=== PATIENT | male | born 1965 | race Caucasian/White ===

== ENCOUNTER 2016-10-01 20:44 | Inpatient (IN) | payer MEDICARE ==
[2016-10-01] VITALS (8 sets, daily range): BP systolic 112–155; BP diastolic 75–97; PULSE 67–83; RESP 18–20; TEMP 97.5–98; O2SAT 94–98
[~2016-10-01 20:44] MED LIST: ATAZ100 PO; FIORTAB4 PO; LISI-360 PO; RITO100 PO; TENO300 PO
[2016-10-01] MEDS ORDERED: SODIUM CHLOR 0.9% 1000 ML INJ 1,000 ML IV ONE (20:50)
[2016-10-01] MEDS ORDERED: NITROGLYCERIN 0.4 MG SL 25 TABS/BTL SL STA (20:50)
[2016-10-01] MEDS ORDERED: ASPIRIN 81 MG CHEW TAB PO STA (20:50)
[2016-10-01] MEDS ORDERED: HEPARIN SODIUM - IV 10,000 UNITS/10 ML VIAL IV STA (20:54)
[2016-10-01] MEDS ORDERED: ATAZ150 PO (20:57)
[2016-10-01] MEDS ORDERED: ATEN25TA PO (20:57)
[2016-10-01] MEDS ORDERED: SODIUM CHLORIDE 0.9% FLUSH 5 ML FLUSH IVF SCH (21:00)
[2016-10-01] MEDS ORDERED: SODIUM CHLORIDE 0.9% FLUSH 5 ML FLUSH IVF PRN ×3 (21:00→22:45)
[2016-10-01] MEDS ORDERED: NITROGLYCERIN-DEXTROSE INJ 250 ML IV SCH ×2 (21:00→22:45)
--- NOTE | 2016-10-01 21:00 | PD ---
HPI Chief Complaint: Chest Pain Time Seen by Provider: 20:50 Travel History International Travel<30 days: No Contact w/Intl Traveler<30days: No Traveled to known affect area: No History of Present Illness HPI 51-year-old male presents to the emergency department by private transportation for complaint of retrosternal chest pain radiating into both upper extremity that developed just prior to arrival to the emergency department. Patient states she has felt well all day was getting out of the shower and started noticing severe pain in his chest with radiation. No nausea or vomiting since breath. Did note diaphoresis. No prior history of CAD. Patient does have history of hypertension but denies dyslipidemia diabetes tobacco use or premature onset history of CAD in his family. Patient rates pain 10 over 10 in intensity. Patient denies other concerns or complaints. Patient does report that he is HIV positive. Patient's primary care physician is Dr. Desai. Patient has not seen a blister pack operator. PFSH Past Medical History Narrative Medical HTN, HIV, hepatitis C, headaches; eye surgery; No Tobacco use; nursing notes reviewed Autoimmune Disease: Yes (HIV +) Blood Disorders: No Cancer: No Cardiovascular Problems: No Chest Pain: No Congestive Heart Failure: No Cerebrovascular Accident: No Endocrine: No Glaucoma: No Genitourinary: No Headaches: Yes Hepatitis: Yes Hypertension: Yes Immune Disorder: Yes (HIV POSITIVE) Implanted Vascular Access Dvce: No Medical other: Yes (HIV) Neurologic: Yes (SPINAL TAP R/O MENINGITIS) Psychiatric: No Respiratory: No Migraines: No Seizures: No PNEUMOCCOCAL Vaccine (Year): 1 Past Surgical History Eye Surgery: Yes (LASER EYE SURGERY) Neurologic Surgery: No Other Surgery: No Social History Alcohol Use: Yes (OCCASIONAL) Tobacco Use: No Substance Use: No Allergies-Medications (Allergen,Severity, Reaction): Coded Allergies: No Known Allergies (Verified , 10/01/16) Reported Meds & Prescriptions Reported Meds & Active Scripts Active Reported Reyataz (Atazanavir) 150 Mg Cap 100 Mg PO DAILY Atenolol 25 Mg Tab 25 Mg PO DAILY Review of Systems Except as stated in HPI: all other systems reviewed are Neg General / Constitutional: No: Fever Eyes: No: Visual changes HENT: No: Congestion Cardiovascular: Positive: Chest Pain or Discomfort, Diaphoresis Respiratory: No: Shortness of Breath Gastrointestinal: No: Nausea, Vomiting, Abdominal Pain Genitourinary: No: Flank Pain Musculoskeletal: No: Myalgias, Arthralgias Skin: No Rash Neurologic: No: Weakness Psychiatric: Positive: Anxiety Hematologic/Lymphatic: No: Easy Bruising Physical Exam Narrative GENERAL: Well-developed well-nourished male in obvious distress with mild diaphoresis no respiratory distress appears to be in discomfort. SKIN: Warm and mild diaphoresis. HEAD: Normocephalic. EYES: No scleral icterus. No injection or drainage. NECK: Supple, trachea midline. No JVD or lymphadenopathy. CARDIOVASCULAR: Regular rate and rhythm without murmurs, gallops, or rubs. RESPIRATORY: Breath sounds equal bilaterally. No accessory muscle use. GASTROINTESTINAL: Abdomen soft, non-tender, nondistended. MUSCULOSKELETAL: No cyanosis, or edema. Bilateral radial and dorsalis pedis pulses 2+ to palpation and equal. BACK: Nontender without obvious deformity. No CVA tenderness. Data Data Last Documented VS Vital Signs Date Time Temp Pulse Resp B/P Pulse Ox O2 Delivery O2 Flow Rate FiO2 10/01/16 21:01 67 20 142/86 98 10/01/16 21:00 Nasal Cannula 2.00 10/01/16 20:52 97.5 Orders Troponin I (10/01/16 20:50) Ckmb (Isoenzyme) Profile (10/01/16 20:50) Complete Blood Count With Diff (10/01/16 20:50) Basic Metabolic Panel (Bmp) (10/01/16 20:50) Magnesium (Mg) (10/01/16 20:50) Calcium (10/01/16 20:50) Prothrombin Time / Inr (Pt) (10/01/16 20:50) Act Partial Throm Time (Ptt) (10/01/16 20:50) B-Type Natriuretic Peptide (10/01/16 20:50) Chest, Single Ap (10/01/16 20:50) Electrocardiogram (10/01/16 20:50) Oxygen Administration (10/01/16 20:50) Iv Access Insert/Monitor (10/01/16 20:50) Oximetry (10/01/16 20:50) Sodium Chlor 0.9% 1000 Ml Inj (Ns 1000 M (10/01/16 20:50) Sodium Chloride 0.9% Flush (Ns Flush) (10/01/16 21:00) Aspirin Chew (Aspirin Chew) (10/01/16 20:50) Nitroglycerin Sl (Nitrostat Sl) (10/01/16 20:50) Nitroglycerin-Dextrose Inj (Nitroglyceri (10/01/16 21:00) Heparin Inj (Heparin Inj) (10/01/16 20:54) Admit Order (Ed Use Only) (10/01/16 ) ^ Saline Lock (10/01/16 21:00) Resp Oxygen Shai C Titrat 1-4 L (10/01/16 ) ^ Notify Dr: Other (10/01/16 21:00) Sodium Chloride 0.9% Flush (Ns Flush) (10/01/16 21:00) CKMB (10/01/16 20:20) CKMB% (10/01/16 20:20) Labs Laboratory Tests Test 10/01/16 20:20 White Blood Count 9.2 TH/MM3 Red Blood Count 5.09 MIL/MM3 Hemoglobin 15.3 GM/DL Hematocrit 45.8 % Mean Corpuscular Volume 89.9 FL Mean Corpuscular Hemoglobin 30.1 PG Mean Corpuscular Hemoglobin 33.5 % Concent Red Cell Distribution Width 13.0 % Platelet Count 230 TH/MM3 Mean Platelet Volume 8.2 FL Neutrophils (%) (Auto) 48.2 % Lymphocytes (%) (Auto) 42.6 % Monocytes (%) (Auto) 7.3 % Eosinophils (%) (Auto) 1.4 % Basophils (%) (Auto) 0.5 % Neutrophils # (Auto) 4.5 TH/MM3 Lymphocytes # (Auto) 3.9 TH/MM3 Monocytes # (Auto) 0.7 TH/MM3 Eosinophils # (Auto) 0.1 TH/MM3 Basophils # (Auto) 0.0 TH/MM3 CBC Comment DIFF FINAL Differential Comment Prothrombin Time 11.2 SEC Prothromb Time International 1.0 RATIO Ratio Activated Partial 25.9 SEC Thromboplast Time Sodium Level 141 MEQ/L Potassium Level 3.5 MEQ/L Chloride Level 107 MEQ/L Carbon Dioxide Level 22.9 MEQ/L Anion Gap 11 MEQ/L Blood Urea Nitrogen 22 MG/DL Creatinine 1.30 MG/DL Estimat Glomerular Filtration 59 ML/MIN Rate Random Glucose 113 MG/DL Calcium Level 8.8 MG/DL Magnesium Level 2.2 MG/DL Total Creatine Kinase 124 U/L Creatine Kinase MB 1.4 NG/ML Troponin I LESS THAN 0.02 NG/ML B-Type Natriuretic Peptide 20 PG/ML MDM Medical Decision Making Medical Screen Exam Complete: Yes Emergency Medical Condition: Yes Medical Record Reviewed: Yes (medical record reviewed) Interpretation(s) EKG normal sinus rhythm with marked ST elevation anterolaterally with reciprocal changes inferiorly CBC & BMP Diagram 10/01/16 20:20 troponin I: less than 0.02, not elevated coags: wnl cxr nad, tortuous aorta per reading radiologist Dr Gomez; reviewed by me Differential Diagnosis STEMI, dissection, aneurysm Narrative Course Patient straight back to ED stretcher placed on quality assurance monitor final IV access obtained specimens collected supplemental oxygen administered EKG performed consistent with acute ST elevation AMI; patient administered aspirin therapy 4 mg by mouth chewed, sublingual nitroglycerin 0.4 mg 2 administered patient received heparin bolus times one without associated infusion patient administered infusion administered nitroglycerin patient heart rate staying in the 60s therefore metoprolol deferred at this time; patient with ongoing pain administered for Zofran for mild nausea and total of morphine sulfate 4 mg IV at 2 mg increments each; blood pressure 116 systolic therefore administered normal saline bolus. 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 Time to perform other separately billable procedures was not included in the critical care time. My time did not include minutes spent treating any other patients simultaneously or on activities that did not directly contribute to the patient's treatment. The services I provided to this patient were to treat and/or prevent clinically significant deterioration that could result in: Arrhythmia cardiogenic shock I provided critical care services requiring my management, as noted below: Chart data review, documentation time, medication orders and management, vital sign assessments/reviewing monitor data, ordering and reviewing lab tests, ordering and interpreting/reviewing x-rays and diagnostic studies, care of the patient and discussion of the patient with the admitting physicians. Procedures EKG Prior to Arrival: No Physician Communication Physician Communication @ 20:[address] Woo on his way in to [facility] ballistics laboratory gunsmith Diagnosis Primary Impression: STEMI (ST elevation myocardial infarction) Qualified Code: I21.02 - ST elevation myocardial infarction involving left anterior descending (LAD) coronary artery Admitting Information Admitting Physician Requests: Admit Sia Thayer MD Oct 01, 2016 21:00
[2016-10-01 21:04] LABS: AUTOMATED NEUTROPHIL # 4.5 TH/MM3 (1.8-7.7); BASOPHIL % 0.5 % (0.0-2.0); EOSINOPHIL # 0.1 TH/MM3 (0-0.4); EOSINOPHIL % 1.4 % (0.0-4.0); HEMATOCRIT 45.8 % (39.0-51.0); HEMO FLAGS DIFF FINAL; LYMPH % 42.6 % (9.0-44.0); LYMPHOCYTE # 3.9 TH/MM3 (1.0-4.8); MEAN CELL VOLUME 89.9 FL (80.0-100.0); MEAN CORPUSCULAR HEMOGLOBIN 30.1 PG (27.0-34.0); MEAN CORPUSCULAR HGB CONC 33.5 % (32.0-36.0); MONO % 7.3 % (0.0-8.0); NEUT % 48.2 % (16.0-70.0); PLATELET COUNT 230 TH/MM3 (150-450); RED BLOOD COUNT 5.09 MIL/MM3 (4.50-5.90); WHITE BLOOD COUNT 9.2 TH/MM3 (4.0-11.0)
[2016-10-01 21:14] LABS: CHLORIDE 107 MEQ/L (98-107); POTASSIUM 3.5 MEQ/L (3.5-5.1); SODIUM (NA) 141 MEQ/L (136-145)
[2016-10-01] MEDS ORDERED: ONDANSETRON HCL 4 MG/2 ML VIAL IV PUSH ONE (21:15)
[2016-10-01] MEDS ORDERED: SODIUM CHLORID 0.9% 500 ML INJ 500 ML IV ONE (21:15)
[2016-10-01] MEDS ORDERED: MORPHINE SULFATE 4 MG/ML INJ IV PUSH ONE (21:15)
[2016-10-01 21:17] LABS: ANION GAP 11 MEQ/L (5-15); BICARBONATE 22.9 MEQ/L (21.0-32.0); BLOOD UREA NITROGEN 22 MG/DL (7-18); MAGNESIUM 2.2 MG/DL (1.5-2.5)
[2016-10-01 21:19] LABS: APTT (PATIENT) 25.9 SEC (24.3-30.1); PROTHROMBIN TIME - PATIENT 11.2 SEC (9.8-11.6)
[2016-10-01 21:20] LABS: GLOMERULAR FILTRATION RATE 59 ML/MIN (>89)
[2016-10-01 21:23] LABS: CREATINE KINASE 124 U/L (39-308)
--- NOTE | 2016-10-01 21:25 | RADHPO ---
EXAM DATE/TIME: 10/01/2016 20:57 [facility] COMPARISON: No previous studies available for comparison. INDICATIONS : Chest pain, Stemi alert MEDICAL HISTORY : None. SURGICAL HISTORY : None. ENCOUNTER: Initial ACUITY: 1 day PAIN SCORE: 10/10 LOCATION: Bilateral chest FINDINGS: A single view of the chest demonstrates the lungs to be symmetrically aerated without evidence of mas s, infiltrate or effusion. The cardiomediastinal contours are unremarkable. Osseous structures are intact. CONCLUSION: 1. No acute findings. Tortuous aorta. Roc Gomez MD on October 01, 2016 at 21:23 Board Certified Radiologist. This report was verified electronically.
[2016-10-01] MEDS ORDERED: HEPARIN-NS/PF INJ 500 ML ONE (21:32)
[2016-10-01] MEDS ORDERED: MIDAZOLAM HCL 2 MG/2 ML VIAL ONE (21:34)
[2016-10-01 21:35] LABS: CKMB 1.4 NG/ML (0.5-3.6)
[2016-10-01] MEDS ORDERED: IOHEXOL 350 MG/ML 100 ML BTL (for Cath Lab) OTHER ONE (21:51)
[2016-10-01] MEDS ORDERED: BIVALIRUDIN 250 MG VIAL ONE (21:57)
[2016-10-01] MEDS ORDERED: TICAGRELOR 90 MG TAB PO ONE (22:13)
[2016-10-01] MEDS ORDERED: BIVALIRUDIN INJ 250 MG in SODIUM CHLORIDE 0.9% INJ 50 ML IV SCH (22:31)
[2016-10-01] MEDS ORDERED: SODIUM CHLOR 0.9% 1000 ML INJ 1,000 ML IV SCH (22:31)
[2016-10-01] MEDS ORDERED: ATROPINE SULFATE 1 MG/ML VIAL IV PRN (22:45)
[2016-10-01] MEDS ORDERED: MISC INFORMATION XX ONE (22:45)
[2016-10-01] MEDS ORDERED: ACETAMINOPHEN 325 MG TAB PO PRN (22:45)
[2016-10-01] MEDS ORDERED: ONDANSETRON HCL 4 MG/2 ML VIAL IV PRN (22:45)
[2016-10-01] MEDS ORDERED: BACITRACIN OINT 0.9 GM PKT TOP ONE (22:45)
--- NOTE | 2016-10-01 23:06 | MA ---
cc: ERLIN DAVID M.D., DANIEL A. M.D. DATE 10/01/2016 PROCEDURE PERFORMED 1. Left heart catheterization. 2. Left ventriculography. 3. Coronary angiography 4. Primary stenting of the proximal left anterior descending coronary artery. DESCRIPTION OF PROCEDURE The patient was brought to the cardiac label stamper under emergency with an acute anterior STEMI. The right groin was prepped and draped in sterile fashion. Using 1% lidocaine for local anesthesia, a 6.5-Greenlandic sheath was inserted in the right femoral artery. Next, I used a 6-Greenlandic XB 4.0 LAD guiding catheter which engaged the left main nicely. Angiography was then obtained. I crossed the LAD with a BMW wire, then directly stented utilizing a 3.5 x 18-mm Resolute stent at 12 atmospheres. This restored normal flow in the LAD. Additional angiograms were obtained. I decided not to perform any further intervention on the left coronary system. The catheter was removed. Angiography of the right coronary artery was performed using a 3DRC catheter. An angled pigtail catheter was then used to measure left ventricular pressure, followed by left ventriculography and then a pullback. Angiography was then obtained of the right groin followed by uncomplicated Angio-Seal placement. There were no complications. FINDINGS I. HEMODYNAMICS: Left ventricular pressure was 114/15 with an end-diastolic pressure of 21. Aortic pressure is 122/84 with a mean of 100. II. LEFT VENTRICULOGRAPHY: Left ventriculography shows anterolateral and apical akinesis. Ejection fraction is about 35%. III. CORONARY ANGIOGRAPHY The left main coronary artery appears normal. The left anterior descending artery has a very proximal 99% stenosis with thrombus. It involves the small diagonal branch which has diffuse disease. The remainder of the LAD appears unremarkable and had DHEERAJ-2 flow prior to intervention. The circumflex artery appears normal. The right coronary artery is dominant with irregularities. RESULTS OF STENTING Following stenting of the proximal LAD, a 0% residual stenosis had been achieved. There was some 25% narrowing distal to the stent by the first septal imagery intelligence branch which was left alone. The diagonal branch remained patent. It is diffusely diseased with probably 70% stenosis proximally but is less than a 2-mm sized vessel. NOTE The procedure was performed with Angiomax and the patient was loaded with Brilinta at the end of the case. CONCLUSIONS 1. Acute anterior STEMI with EF of 35%. 2. Subtotally occluded LAD with successful stenting utilizing a drug-eluting stent with complete revascularization achieved. PLAN 1. The patient will continue on aspirin and Brilinta. 2. We will introduce RENA inhibitor, beta nigel and statin therapy. 3. Anticipate a hospital stay of two days. MD ASTON Brumfield/MILAGRO /10:40 PM /10:57 PM
[2016-10-02] VITALS (24 sets, daily range): BP systolic 104–128; BP diastolic 69–85; PULSE 55–90; RESP 14–20; TEMP 97.9–98.7; O2SAT 93–98
--- NOTE | 2016-10-02 08:53 | PD.CARD.PN ---
Subjective Subjective Remarks Chest sore, right groin sore, no SOB or angina Objective Medications Current Medications Medications (Trade) Dose Ordered Sig/Mendoza Route Start Time Stop Time Status Last Admin (NS Flush) 2 ml UNSCH PRN IVF 10/01/16 22:45 (NS Flush) 2 ml BID IVF 10/02/16 09:00 (Tylenol) 325 mg Q4H PRN PO 10/01/16 22:45 (Percocet 5-325 Mg) 1 tab Q4H PRN PO 10/01/16 22:45 (Aspirin Chew) 81 mg DAILY PO 10/02/16 09:00 Ticagrelor 90 mg 90 mg BID PO 10/02/16 09:00 (Nitroglycerin-Dextrose Inj) 250 ml @ 0 mls/hr TITRATE IV 10/01/16 22:45 (Atropine Inj) 0.5 mg UNSCH PRN IV 10/01/16 22:45 (Zofran Inj) 4 mg Q4H PRN IV 10/01/16 22:45 (Coreg) 3.125 mg BID PO 10/02/16 09:00 (Prinivil) 5 mg DAILY PO 10/02/16 09:00 (Lipitor) 10 mg DAILY PO 10/02/16 09:00 Vital Signs / I&O Vital Signs Date Time Temp Pulse Resp B/P Pulse Ox O2 Delivery O2 Flow Rate FiO2 10/02/16 04:00 98.0 65 18 119/85 97 10/02/16 02:00 63 107/78 10/02/16 01:30 73 104/78 10/02/16 01:00 67 106/74 10/02/16 00:30 75 117/79 10/02/16 00:00 98.0 10/02/16 00:00 73 112/83 10/01/16 23:45 77 112/81 10/01/16 23:30 78 119/79 10/01/16 23:15 83 117/80 10/01/16 23:00 98.0 79 18 113/75 95 10/01/16 21:01 67 20 142/86 98 10/01/16 21:00 94 Nasal Cannula 2.00 10/01/16 20:57 Nasal Cannula 2 10/01/16 20:57 98 10/01/16 20:52 97.5 80 20 155/97 97 I/O 10/01/16 10/01/16 10/01/16 10/02/16 10/02/16 10/02/16 07:00 15:00 23:00 07:00 15:00 23:00 Intake Total 117 ml Output Total 700 ml Balance -583 ml Intake Oral 100 ml IV Total 17 ml Output Urine Total 700 ml Physical Exam GENERAL: Well developed, well nourished. No acute distress. HEENT: Jugular venous pressure is normal. CHEST: Lungs clear to auscultation bilaterally. Unlabored respiratory effort. CARDIAC: Regular rate and rhythm without S3, S4, or murmur. ABDOMEN: Soft, nontender, no hepatosplenomegaly. Bowel sounds present. EXTREMITIES: No clubbing, cyanosis, or edema. No hematoma right groin. Laboratory Laboratory Tests Test 10/01/16 20:20 White Blood Count 9.2 TH/MM3 Red Blood Count 5.09 MIL/MM3 Hemoglobin 15.3 GM/DL Hematocrit 45.8 % Mean Corpuscular Volume 89.9 FL Mean Corpuscular Hemoglobin 30.1 PG Mean Corpuscular Hemoglobin 33.5 % Concent Red Cell Distribution Width 13.0 % Platelet Count 230 TH/MM3 Mean Platelet Volume 8.2 FL Neutrophils (%) (Auto) 48.2 % Lymphocytes (%) (Auto) 42.6 % Monocytes (%) (Auto) 7.3 % Eosinophils (%) (Auto) 1.4 % Basophils (%) (Auto) 0.5 % Neutrophils # (Auto) 4.5 TH/MM3 Lymphocytes # (Auto) 3.9 TH/MM3 Monocytes # (Auto) 0.7 TH/MM3 Eosinophils # (Auto) 0.1 TH/MM3 Basophils # (Auto) 0.0 TH/MM3 CBC Comment DIFF FINAL Differential Comment Prothrombin Time 11.2 SEC Prothromb Time International 1.0 RATIO Ratio Activated Partial 25.9 SEC Thromboplast Time Sodium Level 141 MEQ/L Potassium Level 3.5 MEQ/L Chloride Level 107 MEQ/L Carbon Dioxide Level 22.9 MEQ/L Anion Gap 11 MEQ/L Blood Urea Nitrogen 22 MG/DL Creatinine 1.30 MG/DL Estimat Glomerular Filtration 59 ML/MIN Rate Random Glucose 113 MG/DL Calcium Level 8.8 MG/DL Magnesium Level 2.2 MG/DL Total Creatine Kinase 124 U/L Creatine Kinase MB 1.4 NG/ML Troponin I LESS THAN 0.02 NG/ML B-Type Natriuretic Peptide 20 PG/ML Assessment and Plan Problem List: (1) ST elevation (STEMI) myocardial infarction involving left anterior descending coronary artery Assessment and Plan: EKG suggests early reperfusion, no Q waves. Cont ACEI/BB. Home in AM if stable. Discussed heart healthy diet, cardiac rehab. Lipids pending (2) HIV (human immunodeficiency virus infection) Assessment and Plan: per primary service (3) Stented coronary artery Assessment and Plan: Cont. ASA and Jama Holbrook MD Oct 02, 2016 08:53
[2016-10-02] MEDS ORDERED: ATORVASTATIN 10 MG TAB PO SCH (09:00)
[2016-10-02] MEDS: oxyCODONE/ACETAMINOPHEN 5 MG/325 MG TAB PO PRN ×2 (09:16→21:40)
[2016-10-02] MEDS: CARVEDILOL 3.125 MG TAB PO SCH ×2 (09:16→21:39)
[2016-10-02] MEDS: TICAGRELOR 90 MG TAB PO SCH ×2 (09:17→21:40)
[2016-10-02] MEDS: ASPIRIN 81 MG CHEW TAB PO SCH (09:17)
[2016-10-02] MEDS: SODIUM CHLORIDE 0.9% FLUSH 5 ML FLUSH IVF SCH ×2 (09:17→21:40)
[2016-10-02] MEDS: LISINOPRIL 5 MG TAB PO SCH (09:17)
[2016-10-02 09:28] LABS: AUTOMATED NEUTROPHIL # 5.1 TH/MM3 (1.8-7.7); BASOPHIL % 0.2 % (0.0-2.0); EOSINOPHIL % 0.6 % (0.0-4.0); HEMO FLAGS DIFF FINAL; LYMPH % 20.4 % (9.0-44.0); LYMPHOCYTE # 1.5 TH/MM3 (1.0-4.8); MEAN CELL VOLUME 88.9 FL (80.0-100.0); MEAN CORPUSCULAR HEMOGLOBIN 31.3 PG (27.0-34.0); MEAN CORPUSCULAR HGB CONC 35.2 % (32.0-36.0); MONO % 7.6 % (0.0-8.0); NEUT % 71.2 % (16.0-70.0); PLATELET COUNT 152 TH/MM3 (150-450); RED CELL DISTRIBUTION WIDTH 13.4 % (11.6-17.2); WHITE BLOOD COUNT 7.2 TH/MM3 (4.0-11.0)
[2016-10-02 09:58] LABS: ANION GAP 7 MEQ/L (5-15); AST (GOT) 118 U/L (15-37); BICARBONATE 26.7 MEQ/L (21.0-32.0); BLOOD UREA NITROGEN 17 MG/DL (7-18); CHLORIDE 106 MEQ/L (98-107); GLOMERULAR FILTRATION RATE 65 ML/MIN (>89); POTASSIUM 4.1 MEQ/L (3.5-5.1); SODIUM (NA) 140 MEQ/L (136-145)
[2016-10-02 10:02] LABS: ALKALINE PHOSPHATASE 59 U/L (45-117); ALT (GPT) 41 U/L (12-78); CREATINE KINASE 792 U/L (39-308); HDL CHOLESTEROL 51.1 MG/DL (40.0-60.0); LDL CHOLESTEROL 33 MG/DL (0-99); TOTAL BILIRUBIN ADULT 1.1 MG/DL (0.2-1.0)
[2016-10-02 10:21] LABS: CKMB 85.8 NG/ML (0.5-3.6)
--- NOTE | 2016-10-02 18:33 | EKG ---
Date Performed: 10/02/2016 Time Performed: 04:44:10 PTAGE: 51 years EKG: Sinus bradycardia Possible septal infarct - age undetermined Abnormal ECG PREVIOUS TRACING : 10/01/2016 20.49 DOCTOR: Khanh Pepper Interpretating Date/Time 10/02/2016 18:32:23
--- NOTE | 2016-10-02 18:33 | EKG ---
Date Performed: 10/01/2016 Time Performed: 20:49:02 PTAGE: 51 years EKG: NORMAL Sinus rhythm ACUTE INFARCT Anterolateral ST elevation, CONSIDER ACUTE INFARCT Inferior ST-T changes may be due to myocardial ischemia Abnormal ECG NO PREVIOUS TRACING DOCTOR: Khanh Pepper Interpretating Date/Time 10/02/2016 18:32:10
[2016-10-03] VITALS (9 sets, daily range): BP systolic 102–124; BP diastolic 68–81; PULSE 64–96; RESP 16–20; TEMP 97.7–98.8; O2SAT 97–98
[2016-10-03] MEDS: oxyCODONE/ACETAMINOPHEN 5 MG/325 MG TAB PO PRN (03:27)
[2016-10-03] MEDS ORDERED: ATORVASTATIN 40 MG TAB PO SCH (09:15)
[2016-10-03] MEDS: CARVEDILOL 3.125 MG TAB PO SCH (09:36)
[2016-10-03] MEDS: LISINOPRIL 5 MG TAB PO SCH (09:36)
[2016-10-03] MEDS: SODIUM CHLORIDE 0.9% FLUSH 5 ML FLUSH IVF SCH (09:36)
[2016-10-03] MEDS: ASPIRIN 81 MG CHEW TAB PO SCH (09:36)
[2016-10-03] MEDS: TICAGRELOR 90 MG TAB PO SCH (09:36)
[2016-10-03] MEDS ORDERED: BRIL90TA PO (11:40)
[2016-10-03] MEDS ORDERED: CARV3.125 PO (11:40)
[2016-10-03] MEDS ORDERED: LISI-519 PO (11:40)
[2016-10-03] MEDS ORDERED: LIPI20TA PO (11:40)
[2016-10-03] MEDS ORDERED: ASPI81TA11 PO (11:40)
--- NOTE | 2016-10-03 13:50 | HHI.HP ---
HPI Service Date of service 10/02/16. Patient seen around 2 PM on 10/02/16. [facility] Primary Care Physician Trevin Desai MD Admission Diagnosis STEMI Diagnoses: Travel History International Travel<30 Days: No Contact w/Intl Traveler <30 Da: No Traveled to Known Affected Are: No History of Present Illness 51-year-old male with a 20 year history of HIV, last CD4 count 2 months ago 300 , reports severe substernal chest pain radiating to both arms started yesterday evening after getting out of shower. Accompanied by diaphoresis. Denies any injuries. No fevers or chills. No nausea or vomiting. She was found to have an anterior STEMI on admission, and underwent emergent cardiac catheterization with placement of JOAQUIN to LAD. Patient reports resolution of chest pain since cardiac catheterization. Review of Systems Other Performed and negative except for history of present illness and past medical history. Past Family Social History Past Medical History HIV. Patient reports last CD4 count was performed in July. Reports of this was 300. Follow[address] Dr[address] Desai. Hypertension Chronic headache for over a year. Past Surgical History Laser eye surgery Port placement 20 years ago, subsequently removed. Reported Medications Reported Meds & Active Scripts Active Reported Reyataz (Atazanavir) 150 Mg Cap 100 Mg PO DAILY Atenolol 25 Mg Tab 25 Mg PO DAILY Allergies: Coded Allergies: No Known Allergies (Verified , 10/01/16) Family History Mother from cancer 2 years ago. Father is estranged. Social History Nonsmoker. Patient says he drinks rarely. Denies any illicit drugs Physical Exam Vital Signs Vital Signs Date Time Temp Pulse Resp B/P Pulse Ox O2 Delivery O2 Flow Rate FiO2 10/03/16 11:00 97 10/03/16 08:00 72 10/03/16 08:00 97.7 79 20 118/81 97 10/03/16 06:00 69 10/03/16 05:00 68 10/03/16 04:00 66 10/03/16 03:00 64 10/03/16 03:00 98.0 71 18 109/68 98 10/03/16 02:00 96 10/03/16 01:00 64 10/03/16 00:00 71 10/03/16 00:00 98.8 70 16 102/78 97 10/02/16 23:00 90 10/02/16 22:00 69 10/02/16 21:14 21 10/02/16 21:00 73 10/02/16 20:00 98.7 71 20 107/83 98 10/02/16 20:00 66 10/02/16 19:00 55 10/02/16 18:00 58 10/02/16 17:00 63 10/02/16 16:00 74 10/02/16 16:00 98.7 71 18 128/69 96 10/02/16 15:00 62 10/02/16 14:10 93 Nasal Cannula 2.00 10/02/16 14:00 62 Physical Exam GENERAL: This is a well-nourished, well-developed patient, in no apparent distress. Alert and oriented 3. SKIN: No rashes, ecchymoses or lesions. Cool and dry. Right groin access dressed. Clean dry and intact. No ecchymosis. HEAD: Atraumatic. Normocephalic. No temporal or scalp tenderness. EYES: Pupils equal round and reactive. Extraocular motions intact. No scleral icterus. No injection or drainage. ENT: Nose without bleeding, purulent drainage or septal hematoma. Throat without erythema, tonsillar hypertrophy or exudate. Uvula midline. Airway patent. NECK: Trachea midline. No JVD or lymphadenopathy. Supple, nontender, no meningeal signs. CARDIOVASCULAR: Regular rate and rhythm without murmurs, gallops, or rubs. RESPIRATORY: Clear to auscultation. Breath sounds equal bilaterally. No wheezes , rales, or rhonchi. GASTROINTESTINAL: Abdomen soft, non-tender, nondistended. No hepato-splenomegaly , or palpable masses. No guarding. MUSCULOSKELETAL: Extremities without clubbing, cyanosis, or edema. No joint tenderness, effusion, or edema noted. No calf tenderness. Negative Homans sign bilaterally. NEUROLOGICAL: Awake and alert. Cranial nerves II through XII intact. Motor and sensory grossly within normal limits. Five out of 5 muscle strength in all muscle groups. Normal speech. Result Diagram: 2/7/17 0920 2/7/17 0920 Imaging Last Impressions Chest X-Ray 10/01/162049 Signed Impressions: Service Date/Time: Saturday, October 01, 2016 20:57 - CONCLUSION: 1. No acute findings. Tortuous aorta. Roc Gomez MD Assessment and Plan Assessment and Plan //STEMI -Anterior STEMI on admission. -Management with aspirin, nitroglycerin. -s/p JOAQUIN to LAD on admission -Continue statin, RENA inhibitor, Brilinta, aspirin. Start on Coreg. -Cardiology following. Appreciate assistance. //HIV. -Patient follows with Dr. Desai. Most recent CD4 count was 300 in July. Patient will need to be on Brilinta for at least a year due to drug-eluting stents. //Prophylaxis. As per cardiology. Physician Certification 2 Midnight Certification Type: Admission for Inpatient Services Order for Inpatient Services The services are ordered in accordance with Medicare regulations or non- Medicare payer requirements, as applicable. In the case of services not specified as inpatient-only, they are appropriately provided as inpatient services in accordance with the 2-midnight benchmark. Estimated LOS (days): 2 days is the estimated time the patient will need to remain in the hospital, assuming treatment plan goals are met and no additional complications. Post-Hospital Plan: Home Antelmo Desai MD Oct 03, 2016 13:50
--- NOTE | 2016-10-03 13:51 | HHI.PR ---
Subjective Remarks Patient seen this morning around 11 AM. Says he feels well. Denies any chest pain or shortness of breath. I discussed with him that he needs to hold his HIV medications as this interacts with his Brilinta. He'll need to follow-up with Dr. Desai within the next 1-2 days restart his HIV meds. Objective Vital Signs Date Time Temp Pulse Resp B/P Pulse Ox O2 Delivery O2 Flow Rate FiO2 10/03/16 11:00 97 10/03/16 08:00 72 10/03/16 08:00 97.7 79 20 118/81 97 10/03/16 06:00 69 10/03/16 05:00 68 10/03/16 04:00 66 10/03/16 03:00 64 10/03/16 03:00 98.0 71 18 109/68 98 10/03/16 02:00 96 10/03/16 01:00 64 10/03/16 00:00 71 10/03/16 00:00 98.8 70 16 102/78 97 10/02/16 23:00 90 10/02/16 22:00 69 10/02/16 21:14 21 10/02/16 21:00 73 10/02/16 20:00 98.7 71 20 107/83 98 10/02/16 20:00 66 10/02/16 19:00 55 10/02/16 18:00 58 10/02/16 17:00 63 10/02/16 16:00 74 10/02/16 16:00 98.7 71 18 128/69 96 10/02/16 15:00 62 10/02/16 14:10 93 Nasal Cannula 2.00 10/02/16 14:00 62 I/O 10/02/16 10/02/16 10/02/16 10/03/16 10/03/16 10/03/16 07:00 15:00 23:00 07:00 15:00 23:00 Intake Total 117 ml 720 ml 480 ml Output Total 700 ml 900 ml 750 ml Balance -583 ml -180 ml -270 ml Intake Oral 100 ml 720 ml 480 ml IV Total 17 ml Output Urine Total 700 ml 900 ml 750 ml # Bowel Movements 1 0 Result Diagram: 10/02/1691910/02/16919 Objective Remarks GENERAL: Sitting in bed. Appears comfortable. Alert and oriented 3. SKIN: Warm and dry. Groin access incision dressed. Clean dry and intact. No surrounding ecchymosis. HEAD: Normocephalic. EYES: No scleral icterus. No injection or drainage. NECK: Supple, trachea midline. No JVD or lymphadenopathy. CARDIOVASCULAR: Regular rate and rhythm without murmurs, gallops, or rubs. RESPIRATORY: Breath sounds equal bilaterally. No accessory muscle use. GASTROINTESTINAL: Abdomen soft, non-tender, nondistended. MUSCULOSKELETAL: No cyanosis, or edema. BACK: Nontender without obvious deformity. No CVA tenderness. A/P Assessment and Plan //STEMI -Anterior STEMI on admission. -Management with aspirin, nitroglycerin. -s/p JOAQUIN to LAD on admission -Continue statin, RENA inhibitor, Brilinta, aspirin. Start on Coreg. -Cardiology following. Appreciate assistance. //HIV. -Patient follows with Dr. Desai. Most recent CD4 count was 300 in July. Patient will need to be on Brilinta for at least a year due to drug-eluting stents. -Discussed with infectious disease on-call. Will have patient hold his HIV meds until he can follow up with infectious disease as outpatient. Patient says he will make appointment with ID doctor for today or tomorrow. Patient and significant other convey understanding. //Prophylaxis. As per cardiology. Discharge Planning Discharge home today. Follow-up with infectious disease today or tomorrow. Follow-up with cardiology in 2 weeks. Antelmo Desai MD Oct 03, 2016 13:51
--- NOTE | 2016-10-08 08:34 | MH ---
cc: ERLIN DAVID M.D. DATE OF ADMISSION: 10/01/2016 ADMISSION DIAGNOSIS Acute anterior STEMI. CHIEF COMPLAINT Chest pain. HISTORY OF PRESENT ILLNESS This is a 51-year-old man who went to the [facility] by private vehicle with chest pain radiating to both arms. He was found to have an acute anterior STEMI. I was called at home and STEMI Alert was called. The patient was brought to the [facility] and had emergency stenting. He has a history of hypertension. He has no other known cardiac risk factors. No history of coronary artery disease in the family. The lipid status is currently not known. PAST MEDICAL HISTORY He is HIV positive and has been treated for hepatitis C before. No other significant past medical history. PAST SURGICAL HISTORY Unremarkable except for laser eye surgery. SOCIAL HISTORY He drinks occasionally. No tobacco use. No substance abuse. ALLERGIES None known. MEDICATIONS Medications at home included: 1. Atenolol 25 mg daily. 2. Reyataz 100 mg p.o. daily. REVIEW OF SYSTEMS Negative for bleeding. Remaining review of systems negative. PHYSICAL EXAMINATION GENERAL: An acutely ill-appearing man who is shaking and mildly diaphoretic. HEENT: Exam unremarkable. NECK: No JVD. No bruits. CHEST: Clear to auscultation. CARDIAC: S1, S2, S4. Regular rate and rhythm. No murmurs or gallops. ABDOMEN: Soft, nontender. No masses or organomegaly. EXTREMITIES: No clubbing, cyanosis or edema. EKG EKG shows an acute anterior STEMI. ASSESSMENT AND PLAN The patient underwent emergency angioplasty and stenting of the LAD. He has had a few minor sinus pauses, not severe enough to require pacemaker. The plan is to continue him on aspirin, Brilinta, RENA inhibitor, beta nigel and statin therapy. Anticipated hospital stay is 2 days. MD ASTON Brumfield/RUBÉN /10:43 PM /8:26 AM
== END 2016-10-03 14:05 | disposition home or self-care (01) | DRG 247 ==
LOC: PHEFT 20:44 → PHEDA 21:01 → HCPC 22:45
PROVIDERS: ADMIT Internal Medicine; ATTEND Internal Medicine
PROC: 027034Z Dilation of Coronary Artery, One Artery with Drug-eluting Intraluminal Device, Percutaneous Approach (ICD-10-PCS; principal; 2016-10-01)
PROC: 4A023N7 Measurement of Cardiac Sampling and Pressure, Left Heart, Percutaneous Approach (ICD-10-PCS; 2016-10-01)
PROC: B2111ZZ Fluoroscopy of Multiple Coronary Arteries using Low Osmolar Contrast (ICD-10-PCS; 2016-10-01)
PROC: B2151ZZ Fluoroscopy of Left Heart using Low Osmolar Contrast (ICD-10-PCS; 2016-10-01)
DX: I21.02 ST elevation (STEMI) myocardial infarction involving left anterior descending coronary artery (principal); I10 Essential (primary) hypertension; I25.10 Atherosclerotic heart disease of native coronary artery without angina pectoris; R51 Headache; Z21 Asymptomatic human immunodeficiency virus [HIV] infection status; Z86.19 Personal history of other infectious and parasitic diseases
CPT/HCPCS: 71010; 80048; 80053; 80061; 82550; 82552; 83735; 83880; 84484; 85025; 85610; 85730; 92941; 93005; 93458; 96374; 96375; C1760; C1769; C1874; C1887; C1893; G0269; J0583; J1644; J2250; J2270; J2405; J3010; J7030; J7040; Q9967

== ENCOUNTER 2018-01-22 18:37 | Emergency (ER) | payer MEDICARE ==
[~2018-01-22] VITALS: Ht 175.3 cm; Wt 75.0 kg
[~2018-01-22 18:37] MED LIST changes: +ASPI81TA23 PO; -ATAZ100 PO; +BRIL90TA PO; +CARV3.125 PO; -FIORTAB4 PO; +LIPI20TA PO; -LISI-360 PO; +LISI-519 PO; -RITO100 PO; -TENO300 PO
[2018-01-22 19:02] VITALS: BP 126/90; PULSE 73; RESP 18; TEMP 97.6; O2SAT 98
[2018-01-22 19:15] VITALS: BP 133/94; PULSE 98; RESP 22; O2SAT 98
[2018-01-22] MEDS ORDERED: LIDOCAINE HCL 1% 30 ML VIAL INFIL ONE (19:15)
[2018-01-22] MEDS ORDERED: BUPIVACAINE HCL PF 0.5% 10 ML VIAL INFIL ONE (19:15)
--- NOTE | 2018-01-22 19:18 | PD ---
HPI Chief Complaint: Laceration/Skin Injury Time Seen by Provider: 19:12 Travel History International Travel<30 days: No Contact w/Intl Traveler<30days: No Traveled to known affect area: No History of Present Illness HPI Patient comes emergency department complaining of right thumb laceration occurred shortly prior to arrival. Patient states he was using a table saw when the when wood he was cutting went to fast on him causing him to get his finger cut. Patient reports tetanus shot is up-to-date. Patient has been applying pressure to this prior to coming to the emergency department secondary to being on Coumadin. Reports burning pain around the laceration without radiation. Reports pain is worse when open to air and improves with applying pressure. Patient is right-hand dominant. PFSH Past Medical History Autoimmune Disease: Yes (HIV +) Blood Disorders: No Cancer: No Cardiovascular Problems: No Chest Pain: No Congestive Heart Failure: No Cerebrovascular Accident: No Endocrine: No Glaucoma: No Genitourinary: No Headaches: Yes Hepatitis: Yes Hypertension: Yes Immune Disorder: Yes (HIV POSITIVE) Implanted Vascular Access Dvce: No Neurologic: Yes (SPINAL TAP R/O MENINGITIS) Psychiatric: No Respiratory: No Migraines: No Seizures: No PNEUMOCCOCAL Vaccine (Year): 1 Past Surgical History Eye Surgery: Yes (LASER EYE SURGERY) Neurologic Surgery: No Other Surgery: No Social History Alcohol Use: Yes (OCCASIONAL) Tobacco Use: No Substance Use: No Allergies-Medications (Allergen,Severity, Reaction): Coded Allergies: No Known Allergies (Verified Adverse Reaction, Unknown, 01/22/18) Reported Meds & Prescriptions Reported Meds & Active Scripts Active Lisinopril 5 Mg Tab 5 Mg PO DAILY Coreg (Carvedilol) 3.125 Mg Tab 3.125 Mg PO BID Aspirin EC (Aspirin) 81 Mg Tabdr 81 Mg PO DAILY Lipitor (Atorvastatin Calcium) 20 Mg Tab 20 Mg PO HS Review of Systems Except as stated in HPI: all other systems reviewed are Neg Physical Exam Narrative GENERAL: Well-developed, well nourished, in mild distress, and non-ill appearing. SKIN: Focused skin assessment warm and dry. Laceration over the palmar surface of the right thumb distal phalanx. No foreign body noted. Full range of motion. Neurovascularly intact distally. HEAD: Atraumatic. Normocephalic. EYES: Pupils equal and round. EOMI. No scleral icterus. No injection or drainage. ENT: No nasal bleeding or discharge. Mucous membranes pink and moist. NECK: Trachea midline. Supple. No nuclear rigidity. CARDIOVASCULAR: Capillary refill less than 2 seconds. RESPIRATORY: No accessory muscle use. No respiratory distress. MUSCULOSKELETAL: No obvious deformities. No clubbing. No cyanosis. No edema. Full range of motion. NEUROLOGICAL: Awake and alert. No obvious cranial nerve deficits. Motor grossly within normal limits. Normal speech. PSYCHIATRIC: Appropriate mood and affect; insight and judgment normal. Data Data Last Documented VS Vital Signs Date Time Temp Pulse Resp B/P (MAP) Pulse Ox O2 Delivery O2 Flow Rate FiO2 01/22/18 21:04 01/22/18 19:17 58 01/22/18 19:15 22 98 Room Air 01/22/18 19:02 97.6 Orders Orders Bupivacaine Pf 0.5% Inj (Marcaine Pf 0.5 (01/22/18 19:15) Lidocaine 1% Inj (Xylocaine 1% Inj) (01/22/18 19:15) Finger ([id number]) (01/22/18 ) Lidocaine Pf 1% Inj (Xylocaine-Mpf 1% In (01/22/18 19:20) Ed Discharge Order (01/22/18 20:51) MDM Medical Decision Making Medical Screen Exam Complete: Yes Emergency Medical Condition: Yes Interpretation(s) Last Impressions Finger X-Ray 01/22/18 0000 Signed Impressions: CONCLUSION: 1. Soft tissue injury to the distal first finger. 2. The bony structures are grossly intact. Differential Diagnosis Open fracture, laceration, abrasion, skin avulsion Narrative Course The patient suffered laceration to the right thumb. There was no evidence to suggest foreign bodies. Visual, tactile and radiographic exams were unremarkable without evidence of foreign body at this time. There was no evidence of neurovascular injury. The patient had a normal distal vascular exam , and had full normal motor and sensory exams. There was also no evidence or tendon injury, with normal distal full range of motions, flexion, extension, abduction, adduction and opponens. There was no evidence of local joint space involvement at this time. The patient was irrigated with copious sterile normal saline and primary repair was performed. Please see procedure note. The patient was given signs and symptom warnings for infection, such as increasing pain, redness, swelling, associated heat, pus or fever. The patient was warned of possible unseen foreign body and instructed to return immediately if signs or symptoms develop. The patient was given instructions for timely follow up. The patient agreed with plan of care. Patient in no obvious distress upon re-evaluation. All pertinent Radiology result(s) discussed with patient. Discussed patient with prior discharge, who is in agreement plan of care and disposition. Any questions/ concerns in reference to patient diagnosis/condition discussed and clarified prior to patient's discharge. Reinforced sheer importance of close follow up with patient's primary physician or primary care clinic and/or hand surgeon. Instructed patient to return to ED immediately, if symptoms return/worsen. Patient showed understanding of above instructions. Further instructions and recommendations were detailed in discharge paperwork. Patient ambulated without difficulty out of ED at discharge. Procedures Procedure Narrative LACERATION REPAIR LOCATION: Right thumb palmar surface distal phalanx LENGTH: Approximately 5 cm in total length NUMBER OF STITCHES/ROBI: 7 report are up-to-date and simple mattress. REPAIR: Verbal consent was obtained. The area of the laceration was cleaned and prepped. Digital block was performed using a mixture of lidocaine without epi Marcaine without epi. The wound was copiously irrigated and explored without evidence of foreign body, bony involvement, ligament injury, tendon injury, or neurovascular injury. The wound was closed using 4-0 Vicryl. This was a single layer repair. A sterile dressing was applied by nurse. The patient was advised to keep the affected area as clean and dry as possible using soap and water. There were no complications. Patient tolerated the procedure well. Diagnosis Primary Impression: Thumb laceration Qualified Codes: S61.011A - Laceration without foreign body of right thumb without damage to nail, initial encounter Referrals: Daren Hoffman MD Patient Instructions: Care For Your Absorbable Stitches (ED), Finger Laceration (ED), General Instructions Additional Instructions: Follow-up with your primary care physician and/or hand surgeon in 2-5 days for reevaluation. Use [id number] Tylenol as needed for pain. Follow instructions on the packaging. Elevate affected thumb to decrease pain and swelling. Keep wound dry and clean as possible using soap and water. Do not soak or submerge wound. Return to the emergency department if symptoms get worse. Disposition: 01 DISCHARGE HOME Condition: Stable Da Aguillon January 22, 2018 19:17
[2018-01-22] MEDS ORDERED: LIDOCAINE HCL 1% PF 30 ML VIAL ONE (19:20)
--- NOTE | 2018-01-22 20:18 | RADRPT ---
EXAM DATE: 01/22/2018 8:12 PM EDT AGE/SEX: 52 years / Male INDICATIONS: Right hand, first digit laceration after being cut with a table saw. CLINICAL DATA: This is the patient's initial encounter. Patient reports that signs and symptoms have been present for 1 day and indicates a pain score of 10/10. MEDICAL/SURGICAL HISTORY: None. None. COMPARISON: No prior [facility] exams available for comparison. FINDINGS: Bony structures are intact and in normal alignment. Joints are intact without dislocation or signifi cant arthropathy. Osseous density is normal. There appears to be some soft tissue injury to the dis prabha first finger. No radiopaque foreign bodies. CONCLUSION: 1. Soft tissue injury to the distal first finger. 2. The bony structures are grossly intact. Electronically signed by: Satinder Antonio MD 01/22/2018 8:17 PM EDT
== END 2018-01-22 21:23 | disposition home or self-care (01) ==
LOC: NEPE 18:37
DX: S61.011A Laceration without foreign body of right thumb without damage to nail, initial encounter (principal); W31.2XXA Contact with powered woodworking and forming machines, initial encounter
CPT/HCPCS: 12002; 73140